=== PATIENT | female | born 1975 | race Caucasian/White ===

== ENCOUNTER → 2023-12-15 08:59 | Outpatient (REF) | payer OTHER, SELFPAY | LOC: HWRAD 08:59 | PROVIDERS: ATTENDING PHYSICIAN Physician Assistant | DX: E03.9 Hypothyroidism, unspecified (principal) | CPT/HCPCS: 76536 ==

== ENCOUNTER → 2024-07-22 16:22 | Outpatient (REF) | payer OTHER, SELFPAY | LOC: HWRAD 16:22 | PROVIDERS: ATTENDING PHYSICIAN Physician Assistant | DX: M25.511 Pain in right shoulder (principal) | CPT/HCPCS: 73030 ==

== ENCOUNTER → 2024-09-23 15:02 | Outpatient (REF) | payer OTHER, SELFPAY | LOC: HWRAD 15:02 | PROVIDERS: ATTENDING PHYSICIAN Physician Assistant | DX: M25.551 Pain in right hip (principal); M25.561 Pain in right knee | CPT/HCPCS: 73502 ==